=== PATIENT | female | born 1990 | race Two or more races ===

== ENCOUNTER 2018-04-07 04:03 | Emergency (ER) | payer SELFPAY ==
[~2018-04-07] VITALS: Ht 152.4 cm; Wt 63.5 kg
[2018-04-07 04:27] VITALS: Ht 152.4 cm; Wt 63.5 kg
[2018-04-07 06:32] LABS: CALCIUM 8.5 mg/dL (8.5-10.1); CARBON DIOXIDE 27.1 mmol/L (21-32); CHLORIDE SERUM 108 mmol/L (98-107); CREATININE SERUM 0.6 mg/dL (0.6-1.0); GFR1 > 60 mL/min; GLUCOSE SERUM 113 mg/dL (74-106); POTASSIUM SERUM 3.9 mmol/L (3.5-5.1); SODIUM SERUM 144 mmol/L (136-145)
[2018-04-07 06:38] LABS: ALKALINE PHOSPHATASE 85 U/L (46-116); ALT/SGPT 19 U/L (14-59); AST/SGOT 17 U/L (15-37); BILIRUBIN TOTAL 0.31 mg/dL (0.20-1.00); TOTAL PROTEIN, SERUM 7.9 g/dL (6.4-8.2)
[2018-04-07 06:41] LABS: BASOPHIL % 0.5 % (0-2); PLATELET COUNT 270 x10^3mcL (130-400); RED CELL DISTRIBUTION WIDTH 13.2 % (11.5-14.5)
[2018-04-07 09:30] VITALS: BP 123/68
== END 2018-04-07 09:30 | disposition home or self-care (01) ==
LOC: EDBD 04:03 → ED 04:03
PROVIDERS: Emergency Medicine
DX: F10.129 Alcohol abuse with intoxication, unspecified (principal)
CPT/HCPCS: J3411; J3475; J3490; J7030